=== PATIENT | male | born 1950 | race Caucasian/White ===

== ENCOUNTER → 2022-07-08 14:24 | Outpatient (BNVA) | payer MEDICARE, OTHER, SELFPAY | PROVIDERS: Visit Provider Urology | DX: R36.1 Hematospermia (principal); Z12.5 Encounter for screening for malignant neoplasm of prostate; N41.1 Chronic prostatitis; Z98.890 Other specified postprocedural states | CPT/HCPCS: 81003; 99204 ==

== ENCOUNTER 2022-08-28 10:43 | Outpatient (CLI) | payer MEDICARE, OTHER, SELFPAY ==
[2022-08-28 11:51] LABS: PSA Screen - Urology 0.82 ng/mL (0-4)
== END 2022-08-28 10:44 | disposition home or self-care (01) ==
PROVIDERS: PCP Family Medicine; Visit Provider Urology
DX: Z12.5 Encounter for screening for malignant neoplasm of prostate (principal)
CPT/HCPCS: 36415; G0103

== ENCOUNTER → 2022-09-05 15:02 | Outpatient (BNVA) | payer MEDICARE, OTHER, SELFPAY | PROVIDERS: PCP Family Medicine; Visit Provider Urology | DX: N41.1 Chronic prostatitis (principal); N39.9 Disorder of urinary system, unspecified; R36.1 Hematospermia; Z98.890 Other specified postprocedural states | CPT/HCPCS: 51798; 81003; 99214 ==

== ENCOUNTER 2023-07-29 09:49 | Outpatient (CLI) | payer MEDICARE, OTHER, SELFPAY ==
--- NOTE | 2023-07-29 09:54 | MR_ITS ---
WS: [id number] MRI RIGHT SHOULDER NONCONTRAST TECHNIQUE: Sagittal T2, coronal T1, T2 and proton density imaging. Axial gradient PDE imaging. CLINICAL INFORMATION: R SHOULDER PAIN COMPARISON: None. FINDINGS: Advanced degenerative arthritis AC joint with mild downsloping acromion and subacromial spurring. Sma ll amount of subacromial and subdeltoid fluid. Fluid in the AC joint. Impingement on the distal supraspinatus with chronic thinning of the distal supraspinatus. Tendinopat hy of the supraspinatus with small chronic appearing insertional tear. Infraspinatus is intact. Teres minor is intact. Subscapularis tendon appears intact. Biceps tendon ap pears intact within the bicipital groove. Slight medial subluxation of the proximal biceps tendon. In tra-articular biceps tendon appears intact. Mild tendinopathy intra-articular biceps tendon.Small monica unt of fluid and edema in the rotator interval. Small subcoracoid effusion. Advanced degenerative shakila rowing of the glenohumeral articulation. Biceps labral anchor appears intact. Degenerative fraying of the glenoid labrum. IMPRESSION: 1. 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 Narrowing of the subacromia l space with subacromial spurring. 2. Impingement on the distal supraspinatus with tendinopathy and chronic atrophy. Chronic distal ins ertional supraspinatus tear. 3. Rotator cuff is otherwise intact. 4. Slight medial subluxation of the biceps tendon proximally. Tendinopathy intra-articular biceps te ndon which appears intact. 5. Advanced degenerative narrowing of the glenohumeral articulation with a small joint effusion. Sma ll subcoracoid effusion. 6. Mild diffuse edema about the shoulder and rotator cuff likely degenerative or inflammatory.
--- NOTE | 2023-07-29 09:54 | MR_ITS ---
WS: [id number] MRI LEFT SHOULDER NONCONTRAST TECHNIQUE: Sagittal T2, coronal T1, T2 and proton density imaging. Axial gradient PDE imaging. CLINICAL INFORMATION: L SHOULDER PAIN COMPARISON: None. FINDINGS: Advanced degenerative arthritis AC joint with fluid and edema. Near complete loss of the subacromial space with downsloping of the acromion. High-grade complete tear of the supraspinatus with retraction to the level of the glenohumeral joint. Chronic atrophy of the infraspinatus with tendinopathy. Norm al teres minor. High-grade tear of the subscapularis tendon with irregularity and retraction. Biceps tendon is dislocated from the bicipital groove and displaced anterior to the glenohumeral joint. Adva nced degenerative narrowing of the glenohumeral articulation with small joint effusion. Degenerative fraying of the glenoid labrum. Intra-articular biceps tendon appears intact. Normal bone marrow signa l in the humerus and glenoid. IMPRESSION: 1. High-grade complete tear of the supraspinatus with retraction to the level of the glenohumeral tyson int. 2. High-grade tear of the subscapularis tendon with irregularity and laxity. Associated dislocation of the biceps tendon from the bicipital groove. 3. Dislocated biceps tendon displaced anterior to the glenohumeral joint. 4. Advanced degenerative narrowing of the glenohumeral articulation with small joint effusion. 5. Chronic thinning with tendinopathy involving the infraspinatus. 6. Advanced arthritis AC joint with near complete loss of the subacromial space.
== END 2023-07-29 09:50 | disposition home or self-care (01) ==
LOC: RAD 09:51
PROVIDERS: PCP Family Medicine; Visit Provider Family Medicine
DX: M75.122 Complete rotator cuff tear or rupture of left shoulder, not specified as traumatic (principal); S43.085A Other dislocation of left shoulder joint, initial encounter; X58.XXXA Exposure to other specified factors, initial encounter; M25.512 Pain in left shoulder
CPT/HCPCS: 73221

== ENCOUNTER → 2023-08-26 10:55 | Outpatient (BNVA) | payer MEDICARE, OTHER, SELFPAY | PROVIDERS: PCP Family Medicine; Referring Provider Family Medicine; Visit Provider Physician Assistant | DX: M19.012 Primary osteoarthritis, left shoulder; M19.011 Primary osteoarthritis, right shoulder; M75.101 Unspecified rotator cuff tear or rupture of right shoulder, not specified as traumatic | CPT/HCPCS: 73030; 99203 ==

== ENCOUNTER 2024-06-18 11:36 | Outpatient (CLI) | payer MEDICARE, OTHER, SELFPAY ==
--- NOTE | 2024-06-18 11:40 | CT_ITS ---
WS: [id number] CT ABDOMEN AND PELVIS WITH CONTRAST HISTORY: GROSS HEMATURIA TECHNIQUE: Imaging performed of the abdomen and pelvis with IV contrast. Single phase imaging of the abdomen. Coronal and sagittal reformats are submitted. All CT scans at [facility] use at [facility] one of these dose optimization techniques: automated exposure control; mA and/or kV adjustment per patient size (includes targeted exams where dose is matched to clinical indication); or iterative re construction. IV CONTRAST: Omnipaque 350; 100 mL IV. Oral contrast: No DLP: 547.23 mGy.cm COMPARISON: 02/22/2019 Lower thorax: Lung bases are clear. Heart is normal size. Small hiatal hernia. Liver/biliary system: Normal size with no intrahepatic dilatation. Gallbladder: Contracted gallbladder. Probably due to nonfasting state. Pancreas: Diffuse mild pancreatic atrophy. Spleen: Normal size spleen. No mass or infarct. Adrenal glands: Normal. Right kidney: Normal size RIGHT kidney. Exophytic cyst measures 1.8 cm from the posterior mid kidney. Similar size as compared to a prior CT from 02/22/2019. No renal or ureteral obstruction. Left kidney: Normal size kidney. Cortical cyst mid kidney measures 0.6 cm. No renal or ureteral obstr uction. Aorta: Mild atherosclerosis with no aneurysm. Ectatic aorta. Normal variant celiac axis. LEFT hepatic artery arises directly from the aorta. Lymphadenopathy: None. Free fluid: None. GI tract: No GI tract obstruction. Mild constipation. No diverticulitis. Abdominal wall: Unremarkable abdominal wall. No hernia. Pelvis: No free fluid or adenopathy within the pelvis. Urinary bladder is only minimally distended. N o intraluminal filling defect or mass identified. Large central prostate gland calcification. Bones: RIGHT scoliosis. No destructive bone lesions. CT/CT abdomen pelvis w con* [id number] IMPRESSION: 1. No solid renal mass. 2. Simple cyst RIGHT kidney, 1.8 cm. 3. No renal or ureteral calcification or obstruction. 4. No urinary bladder mass. 5. Ectatic abdominal aorta.
[2024-06-18] MEDS: iohexol 350 mg/mL 500 mL Btl (per mL) IV (12:20)
[2024-06-18 12:32] LABS: Blood Urea Nitrogen 21 mg/dL (8-23)
== END 2024-06-18 11:37 | disposition home or self-care (01) ==
LOC: RAD 11:38
PROVIDERS: Radiology Diagnostic Radiology; PCP Family Medicine; Visit Provider Family Medicine
DX: R31.0 Gross hematuria (principal); N28.1 Cyst of kidney, acquired; I77.811 Abdominal aortic ectasia; K44.9 Diaphragmatic hernia without obstruction or gangrene; R93.3 Abnormal findings on diagnostic imaging of other parts of digestive tract; K86.89 Other specified diseases of pancreas; I70.0 Atherosclerosis of aorta; K59.00 Constipation, unspecified; R93.89 Abnormal findings on diagnostic imaging of other specified body structures
CPT/HCPCS: 74177; 82565; 84520

== ENCOUNTER 2024-06-22 10:07 | Outpatient (RCR) | payer MEDICARE, OTHER, SELFPAY | END 2024-07-02 23:59 | disposition home or self-care (01) | LOC: SPT 10:07 | PROVIDERS: PCP Family Medicine; Visit Provider Nurse Practitioner Family | DX: Z47.1 Aftercare following joint replacement surgery (principal); Z96.612 Presence of left artificial shoulder joint | CPT/HCPCS: 97110; 97161 ==

== ENCOUNTER 2024-07-03 06:30 | Outpatient (RCR) | payer MEDICARE, OTHER, SELFPAY | END 2024-07-30 23:59 | disposition home or self-care (01) | LOC: SPT 06:30 | PROVIDERS: PCP Family Medicine; Visit Provider Nurse Practitioner Family | DX: Z47.1 Aftercare following joint replacement surgery (principal); Z96.612 Presence of left artificial shoulder joint | CPT/HCPCS: 97110 ==

== ENCOUNTER 2024-07-19 09:18 | Outpatient (CLI) | payer MEDICARE, OTHER, SELFPAY ==
[2024-07-19 10:33] LABS: Testosterone Total 140.5 ng/dL (193-740)
[2024-07-19 12:05] LABS: Prostate Specific Antigen 0.723 ng/mL (0-4)
== END 2024-07-19 09:19 | disposition home or self-care (01) ==
PROVIDERS: PCP Family Medicine; Visit Provider Nurse Practitioner Family
DX: E29.1 Testicular hypofunction (principal)
CPT/HCPCS: 84153; 84403